=== PATIENT | male | born 1945 | race Caucasian/White ===

== ENCOUNTER 2020-10-02 09:18 | Inpatient (IN) | payer MEDICARE ==
[~2020-10-02] VITALS: Ht 180.3 cm; Wt 79.5 kg
--- NOTE | 2020-10-02 09:44 | NUR ---
PT WHEELED TO ROOM # 9 FOR BEDSIDE TRIAGE.
[2020-10-02 11:08] LABS: HEMATOCRIT 45.7 % (39.0-50.0); HEMOGLOBIN 14.9 g/dl (14.0-18.0); IMMATURE GRANULOCYTES 0.8 % (0.0-5.0); MEAN CELL VOLUME 92.3 fL CALC (80.0-100.0); MEAN CORPUSCULAR HGB 30.1 pG CALC (26.0-32.0); MEAN CORPUSCULAR HGB CONC 32.6 g/dL CAL (32.0-36.0); NEUT# 3.34 thou/uL (1.82-7.42); RED BLOOD COUNT 4.95 mill/uL (4.70-6.10); RED CELL DISTRI WIDTH 13.4 % (11.5-15.5)
[2020-10-02 11:20] LABS: ALBUMIN 3.7 g/dL (3.2-5.0); ALKALINE PHOSPHATASE 53 u/l (38-126); ANION GAP 12 (6-22 (CALC)); BUN 40 mg/dL (8-23); BUN/CREATININE RATIO 24 (12-20 (CALC)); CARBON DIOXIDE 29 mmol/l (22-30); CHLORIDE 94 mmol/l (95-108); CREATININE 1.7 mg/dL (0.7-1.3); GFR 39 ML/MIN (>=60 (CALC)); GFR FOR AFR.AMER. 48 ML/MIN (>=60 (CALC)); POTASSIUM 3.2 mmol/l (3.5-5.1); SGOT/AST 62 u/l (19-48); SODIUM 132 mmol/l (137-146); TOTAL PROTEIN 6.9 g/dL (6.3-8.2)
--- NOTE | 2020-10-02 11:23 | NUR ---
Reassessment of patient completed. No distress noted.
[2020-10-02 11:31] LABS: MYOGLOBIN 208 ng/mL (0 - 121)
--- NOTE | 2020-10-02 13:33 | NUR ---
Reassessment of patient completed. No distress noted.
--- NOTE | 2020-10-02 18:03 | NUR ---
Reassessment of patient completed. No distress noted.
[2020-10-02 20:01] VITALS: BP 132/68
--- NOTE | 2020-10-02 20:27 | NUR ---
PATIENT ARRIVED TO ICU AT 2000. ALERT AND ORIENTED. PATIENT STATES THAT HE LIVES AT HOME WITH . BOTH HAVE COVID. STATES IS VACCINATED W MODERNA. PATIENT STATED HE IS UNVACCINATED. 3L O2 NASAL CANULA RESP OF 22, O2 SAT OF 88,HR NSB TELE 58 HX OF HTN TEMPORAL FEVER 99.7 SOB WITH LOWER LOBES DIMINISHED AT BILATERAL BASES, PATIENT REPORTS UNPRODUCTIVE AND 'DEEP' COUGH, PATIENT REPORTS CHILLS AND ACHES. WILL CONTINUE TO MONITOR. VITALS REMAIN STABLE.
--- NOTE | 2020-10-02 20:59 | NUR ---
RN GIVE REPORT TO [place] [facility]
[2020-10-03] VITALS (13 sets, daily range): BP systolic 93–140; BP diastolic 53–81
--- NOTE | 2020-10-03 00:01 | NUR ---
PATIENT ASLEEP AND PULLED O2 OFF, PULSE OX IMMEDIATELY DROPPED TO 77%. MASK REPLACED AND REFITTED O2 SATS RETURN TO BASELINE OF 88%
--- NOTE | 2020-10-03 06:17 | NUR ---
PATIENT SLEPT THROUGH THE NIGHT, FACE MASK CAME OFF A FEW TIMES DURING THE NIGHT
--- NOTE | 2020-10-03 06:18 | NUR ---
PT ON 5LPM NC. JONO LLOYD AT THIS TIME. BOOK CUTTER TO MONITOR.
--- NOTE | 2020-10-03 06:45 | NUR ---
REPORT RECEINVED FROM BELKYS PEPE. CARE ASSUMED.
[2020-10-03 06:50] LABS: HEMATOCRIT 43.6 % (39.0-50.0); HEMOGLOBIN 14.1 g/dl (14.0-18.0); IMMATURE GRANULOCYTES 0.5 % (0.0-5.0); MEAN CELL VOLUME 92.8 fL CALC (80.0-100.0); MEAN CORPUSCULAR HGB CONC 32.3 g/dL CAL (32.0-36.0); NEUT# 2.83 thou/uL (1.82-7.42); RED BLOOD COUNT 4.7 mill/uL (4.70-6.10); RED CELL DISTRI WIDTH 13.2 % (11.5-15.5)
[2020-10-03 07:18] LABS: ALKALINE PHOSPHATASE 47 u/l (38-126); BUN 32 mg/dL (8-23); BUN/CREATININE RATIO 28 (12-20 (CALC)); CARBON DIOXIDE 26 mmol/l (22-30); CHLORIDE 103 mmol/l (95-108); CREATININE 1.2 mg/dL (0.7-1.3); GFR 59 ML/MIN (>=60 (CALC)); GFR FOR AFR.AMER. > 60 ML/MIN (>=60 (CALC)); SGOT/AST 51 u/l (19-48); SODIUM 136 mmol/l (137-146); TOTAL PROTEIN 5.6 g/dL (6.3-8.2)
--- NOTE | 2020-10-03 07:20 | NUR ---
PT RESTING IN BED AWAKE. PT IS ALERT AND ORINETED X3. PT ASSISTED UP TO RECLINER AT THIS TIME. PT ON MASK AT 6L. O2 INCREASED TO 10L AT THIS TIME FOR O2 SATS IN 80S. PT PROVIDED EDUCATION ON COVID AND PRONING AT NIGHT AND UP IN CHAIR DURING THE DAY. PT VERBALIZED UNDERSTANDING. SHIFT ASSESSMENT COMPLETED AT THIS TIME. IV PATENT X1. CALL LIGHT IN REACH. WILL CONTINUE TO MONITOR
[2020-10-03 07:32] LABS: ANION GAP 11 (6-22 (CALC)); BILIRUBIN, TOTAL 0.5 mg/dL (0.0-1.4); C-REACTIVE PROTEIN 14.2 mg/dL (0-0.9); POTASSIUM 3.9 mmol/l (3.5-5.1)
--- NOTE | 2020-10-03 08:00 | NUR ---
PT SET UP FOR AM MEAL. PT REMOVED O2 MASK. NURSE INTO ROOM TO PLACE PT ON HI FLOW NASAL CANNULA. PT PLACED ON 12L HI FELIX. O2 SATS 92%
--- NOTE | 2020-10-03 09:45 | NUR ---
DR COOLEY AT BEDSIDE AT THIS TIME.
[2020-10-03] MEDS ORDERED: SIMVASTATIN20 M1 PO (10:01)
[2020-10-03] MEDS ORDERED: HYZAAR1 TAB PO (10:02)
[2020-10-03] MEDS ORDERED: AMLODIPINE BESY10 MG PO (10:02)
[2020-10-03] MEDS ORDERED: HYDRALAZINE50 MG PO (10:02)
--- NOTE | 2020-10-03 10:12 | NUR ---
PT PLACED ON 12L HFNC. JONO WELL AT THIS TIME. BRAKE MACHINE OPERATOR TO MONITOR.
--- NOTE | 2020-10-03 10:28 | NUR ---
PT SITTING UP IN REACLINER AT BEDSIDE. VSS ON MONITOR. CALL LIGHT IN REACH. WILL CONTINUE TO MONITOR.
--- NOTE | 2020-10-03 12:00 | NUR ---
PT SET UP FOR NOON MEAL AT THIS TIME.
--- NOTE | 2020-10-03 12:30 | NUR ---
PT ASSISTED UP TO BSC COMMODE AT THIS TIME.
--- NOTE | 2020-10-03 13:00 | NUR ---
PT REMAINS ON BSC STATES THAT HE NEEDS SOME MORE TIME.
--- NOTE | 2020-10-03 13:30 | NUR ---
PT ASSISTED BACK TO RECLINER AT THIS TIME. LARGE DARK STOOL NOTED AT THIS TIME. SPECIMEN SENT TO LAB FOR REFERNECE. DR COOLEY NOTIFIED. ORDERS RECEIVED FOR H&H.
--- NOTE | 2020-10-03 14:05 | NUR ---
PT WEANED TO 8LPM HFNC. JONO WELL. NAD. RN AWARE. BINDER LOCKSTITCH TO MONITOR.
--- NOTE | 2020-10-03 14:15 | NUR ---
DR COOLEY NOTIFIED OF POSITIVE OCCULT BLOOD AND DROP IN HIGB TO 13 NEW ORDERS RECEIVED AT THIS TIME.
[2020-10-03 14:37] LABS: HEMATOCRIT 42.6 % (39.0-50.0); HEMOGLOBIN 13.4 g/dl (14.0-18.0)
--- NOTE | 2020-10-03 16:00 | NUR ---
PT SITTING UP IN RECLINER AT BEDSIDE. RESP ARE EVEN AND UNLABORED. VSS ON MONITOR. NO DISTRESS NOTED. CALL LIGHT IN REACH. [facility] TO [facility].
--- NOTE | 2020-10-03 18:00 | NUR ---
PT SITTING UP IN RECLINER AT BEDSIDE EATING DINNER. NO DISTRESS NOTED. CALL LIGHT IN REACH. WILL CONTINUE TO MONITOR.
--- NOTE | 2020-10-03 19:00 | NUR ---
REPORT RECEIVED FROM Mecca KEITH RN, CARE OF PT ASSUMED AT THIS TIME.
--- NOTE | 2020-10-03 20:30 | NUR ---
PT LAYING IN PRONE POSITION. RESPIRATIONS REGULAR AND UNLABORED. SP02 98% ON 02 @8L/MIN VIA HI-FLOW NC. DENIES SOB AT REST. REPORTS SOB W/ EXERTION. SR 70'S ON MONITOR. AFEBRILE W/ TEMPORAL TEMP OF 96.9. PT ASSISTED TO BSC FOR BM. APPROX 200ML DARK TARRY LIQUID STOOL EMPTIED FROM COMMODE. PT INCONTINENT OF SMALL AMOUNT OF STOOL. PARTIAL LINEN CHANGE COMPLETED. PT ASSISTED W/ YOGESH-CARE. BRIEF APPLIED PER PT'S REQUEST. FRESH WATER AND HS SNACK PROVIDED. PT SAT UP IN BED. EDUCATION PROVIDED ON MEDICATIONS. SCHEDULED MEDICATIONS ADMINISTERED, PRN APAP ADMINISTERED. SEE E-MAR. PT DENIES FURTHER NEEDS AT THIS TIME. ITEMS WITHIN REACH. CALL SANDRA WITHIN REACH, AGREES TO CALL PRN. CONTACT/AIRBORNE ISOLATION IN PLACE. BED IN LOW POSITION W/ BEDRAILS UP X2.
[2020-10-04] VITALS (13 sets, daily range): BP systolic 109–157; BP diastolic 59–84
--- NOTE | 2020-10-04 00:30 | NUR ---
PT APPEARS TO BE SLEEPING COMFORTABLY. RESPIRATIONS REGULAR AND UNLABORED. VSS. NO APPARENT DISTRESS. CALL SANDRA REMAINS WITHIN REACH.
--- NOTE | 2020-10-04 04:30 | NUR ---
PT APPEARS TO BE SLEEPING COMFORTABLY. RESPIRATIONS REGULAR AND UNLABORED. VSS. NO APPARENT DISTRESS. CALL SANDRA REMAINS WITHIN REACH.
[2020-10-04 05:57] LABS: HEMOGLOBIN 11.7 g/dl (14.0-18.0); MEAN CELL VOLUME 93.3 fL CALC (80.0-100.0); MEAN CORPUSCULAR HGB 30.1 pG CALC (26.0-32.0); MEAN CORPUSCULAR HGB CONC 32.2 g/dL CAL (32.0-36.0); RED BLOOD COUNT 3.89 mill/uL (4.70-6.10); RED CELL DISTRI WIDTH 13.3 % (11.5-15.5)
[2020-10-04 06:01] LABS: HEMATOCRIT 36.3 % (39.0-50.0)
[2020-10-04 06:13] LABS: ALBUMIN 2.5 g/dL (3.2-5.0); ALKALINE PHOSPHATASE 39 u/l (38-126); ANION GAP 7 (6-22 (CALC)); BILIRUBIN, TOTAL 0.3 mg/dL (0.0-1.4); BUN 34 mg/dL (8-23); BUN/CREATININE RATIO 35 (12-20 (CALC)); CARBON DIOXIDE 28 mmol/l (22-30); CHLORIDE 106 mmol/l (95-108); GFR > 60 ML/MIN (>=60 (CALC)); GFR FOR AFR.AMER. > 60 ML/MIN (>=60 (CALC)); POTASSIUM 3.8 mmol/l (3.5-5.1); SGOT/AST 45 u/l (19-48); SODIUM 138 mmol/l (137-146); TOTAL PROTEIN 4.8 g/dL (6.3-8.2)
--- NOTE | 2020-10-04 06:15 | NUR ---
400 ML CLEAR YELLOW URINE EMPTIED FROM URINAL AFTER URINE SAMPLE COLLECTED AND SENT TO LAB. NEW BAG IV NS INTIATED, SEE E-MAR. PT DENIES FURTHER NEEDS AT THIS TIME, CALL SANDRA REMAINS WITHIN REACH, AGREES TO CALL PRN.
[2020-10-04 06:20] LABS: URINE BILIRUBIN - DIPSTICK NEGATIVE (NEGATIVE); URINE BLOOD DIPSTICK NEGATIVE (NEGATIVE); URINE CLARITY CLEAR; URINE COLOR YELLOW; URINE GLUCOSE - DIPSTICK NEGATIVE (NEGATIVE); URINE KETONE NEGATIVE (NEGATIVE); URINE LEUK ESTERASE NEGATIVE (Negative); URINE NITRITE - DIPSTICK NEGATIVE (Negative); URINE PH 6.5 (4.5-8.0); URINE PROTEIN - DIPSTICK NEGATIVE (NEG-TRACE); URINE SPECIFIC GRAVITY 1.015; URINE UROBILINOGEN - DIPSTICK 0.2 E.U./dL (0.2)
--- NOTE | 2020-10-04 07:07 | NUR ---
NAD. VSS. PUNCHER TO MONITOR.
--- NOTE | 2020-10-04 07:20 | NUR ---
pt resting in bed with eyes closed; no apparent distress noted; easy to arouse; pt offers no complaints; assessment completed at this time; pt alert and oriented; denies pain; no n/v noted; resp even and unlabored; lungs clear/ rhonchi bases; skin color wnl; o2 per nc at 8L hi alondra; steel erecting pusher cough noted; hr reg; strong pulses; no edema noted; sr on the monitor; abd soft with bs present; no bm noted per resume writer; no urine to inspect at this time; urinal at bedside; #20 to lac patent with ivf infusing without complication; no redness or edema noted at site; plan of care/ am meds explained; call light within reach; will continue to monitor
--- NOTE | 2020-10-04 08:27 | NUR ---
call received from spouse Fransisca; update provided
--- NOTE | 2020-10-04 10:10 | NUR ---
resting in bed with eyes closed; no apparent distress noted; sr on monitor; call light within reach; will continue to monitor
--- NOTE | 2020-10-04 10:49 | NUR ---
NAD. VSS. DEPUTY COMMONWEALTH'S ATTORNEY TO MONITOR,
--- NOTE | 2020-10-04 12:00 | NUR ---
Dr Vargas present at bedside to assess pt and discuss plan of care
--- NOTE | 2020-10-04 14:02 | NUR ---
resting in bed with eyes closed; no apparent distress noted; pt offers no complaints; sr on monitor; o2 per nc; call light within reach; will continue to monitor
--- NOTE | 2020-10-04 16:15 | NUR ---
awake in bed; iv intact and patent; sr on monitor; o2 per nc; call light within reach; will continue to monitor
--- NOTE | 2020-10-04 18:18 | NUR ---
awake in bed; offers no complaints; iv intact and patent; sr on monitor; o2 per nc at 8L high flow; call light within reach
--- NOTE | 2020-10-04 19:30 | NUR ---
awake. lying on back. denies resp diff. instructed about prone position. o2 cont 8 l/m high flow. monitoring specialist shows sinus rhythm hr 70. #20 lac ns infusing @ 100cchr. po fluids taken fair. voids per urinal. fall & air/contact precautions cont.
--- NOTE | 2020-10-04 20:50 | NUR ---
assisted to prone position.
--- NOTE | 2020-10-04 22:00 | NUR ---
remains in prone position. no resp distress. o2 cont.
[2020-10-05] VITALS (13 sets, daily range): BP systolic 122–160; BP diastolic 65–82
--- NOTE | 2020-10-05 00:01 | NUR ---
remains in prone position. no resp diff. transmitter chief shows sinus rhythm hr 68.
--- NOTE | 2020-10-05 02:00 | NUR ---
resting quietly. remains in prone position. no apparent resp diff.
--- NOTE | 2020-10-05 04:30 | NUR ---
turned self to back.
--- NOTE | 2020-10-05 05:07 | NUR ---
lab here. blood drawn.
[2020-10-05 07:04] LABS: ALBUMIN 2.5 g/dL (3.2-5.0); ALKALINE PHOSPHATASE 40 u/l (38-126); ANION GAP 8 (6-22 (CALC)); BILIRUBIN, TOTAL 0.4 mg/dL (0.0-1.4); BUN 21 mg/dL (8-23); BUN/CREATININE RATIO 26 (12-20 (CALC)); C-REACTIVE PROTEIN 3.6 mg/dL (0-0.9); CARBON DIOXIDE 25 mmol/l (22-30); CHLORIDE 108 mmol/l (95-108); CREATININE 0.8 mg/dL (0.7-1.3); GFR > 60 ML/MIN (>=60 (CALC)); GFR FOR AFR.AMER. > 60 ML/MIN (>=60 (CALC)); POTASSIUM 3.6 mmol/l (3.5-5.1); SGOT/AST 73 u/l (19-48); SODIUM 137 mmol/l (137-146); TOTAL PROTEIN 4.8 g/dL (6.3-8.2)
--- NOTE | 2020-10-05 07:45 | NUR ---
pt awake in bed; no apparent distress noted; no offers no complaints; assessment completed at this time; pt alert and oriented; denies pain; no n/v noted; resp even and unlabored; lungs clear/ diminished bases; skin color wnl; o2 per nc at 8L high flow; o2 sat 90%; hr reg; strong pulses; no edema noted; sr on monitor; abd soft with bs present; no bm noted per commercial lines underwriter; pt voiding clear yellow urine; urinal at bedside; #20 lac patent with ivf infusing without complication; no redness or edema noted; proning explained; pt states "he wants to go home"; o2 requirements explained; plan of care/ meds explained; call light within reach; will continue to monitor
[2020-10-05 07:48] LABS: HEMATOCRIT 36.3 % (39.0-50.0); HEMOGLOBIN 11.6 g/dl (14.0-18.0); MEAN CELL VOLUME 93.8 fL CALC (80.0-100.0); NEUT# 6.71 thou/uL (1.82-7.42); RED BLOOD COUNT 3.87 mill/uL (4.70-6.10); RED CELL DISTRI WIDTH 13.3 % (11.5-15.5)
--- NOTE | 2020-10-05 08:10 | NUR ---
awake in bed; offers no complaints; iv intact and patent; sr on monitor; call light within reach; will continue to monitor
--- NOTE | 2020-10-05 10:10 | NUR ---
Dr Vargas present at bedside to assess pt and discuss plan of care
--- NOTE | 2020-10-05 11:05 | NUR ---
NAD. VSS. EMBRYOLOGY PROFESSOR TO MONITOR.
--- NOTE | 2020-10-05 12:10 | NUR ---
pt awake in bed; offers no complaints; iv intact and patent; fluids cut to 50cc/hr per Dr Ramirez verbal order; sr on monitor; o2 per nc; call light within reach; will continue to monitor
--- NOTE | 2020-10-05 14:15 | NUR ---
awake in bed; offers no complaints; no apparent distress noted; o2 per nc at 8L; iv intact and patent; sr on monitor; call light within reach
--- NOTE | 2020-10-05 16:05 | NUR ---
pt resting in bed on left side with eyes closed; no apparent distress noted; o2 per nc; iv intact and patent; sr on monitor; call light within reach; will continue to monitor
--- NOTE | 2020-10-05 18:07 | NUR ---
awake in bed; offers no complaints; iv intact and patent; no redness or edema noted at site; sr on monitor; o2 per nc high flow; deny needs; call light within reach; will continue to monitor
--- NOTE | 2020-10-05 19:30 | NUR ---
awake. lying on back. denies resp diff. o2 cont per 8 l/m high flow nc. monitor worker shows sinus rhythm hr 70. #20 lac ns infusing @ 50cchr. po fluids taken fair. voids per urinal. fall & air/contact precautions cont. instructed about prone position. pt verbalizes understanding.
--- NOTE | 2020-10-05 22:00 | NUR ---
eyes closed. no resp distress. engine monitor shows sinus rhythm hr 64.
[2020-10-06] VITALS (9 sets, daily range): BP systolic 106–157; BP diastolic 56–85
--- NOTE | 2020-10-06 00:01 | NUR ---
eyes closed. no distress. remains on back. no distress.
--- NOTE | 2020-10-06 02:00 | NUR ---
resting quietly. resps even & unlabored. no apparent distress.
--- NOTE | 2020-10-06 04:00 | NUR ---
eyes closed. no distress. potline monitor shows sinus rhythm hr 62.
--- NOTE | 2020-10-06 05:31 | NUR ---
lab here. blood drawn.
--- NOTE | 2020-10-06 06:17 | NUR ---
eyes closed. no distress. has not proned this shift.
[2020-10-06 06:33] LABS: HEMATOCRIT 36.1 % (39.0-50.0); HEMOGLOBIN 11.8 g/dl (14.0-18.0); MEAN CELL VOLUME 92.3 fL CALC (80.0-100.0); MEAN CORPUSCULAR HGB 30.2 pG CALC (26.0-32.0); MEAN CORPUSCULAR HGB CONC 32.7 g/dL CAL (32.0-36.0); RED BLOOD COUNT 3.91 mill/uL (4.70-6.10)
[2020-10-06 06:37] LABS: ALBUMIN 2.7 g/dL (3.2-5.0); ALKALINE PHOSPHATASE 45 u/l (38-126); ANION GAP 10 (6-22 (CALC)); BILIRUBIN, TOTAL 0.5 mg/dL (0.0-1.4); BUN 17 mg/dL (8-23); BUN/CREATININE RATIO 21 (12-20 (CALC)); CARBON DIOXIDE 26 mmol/l (22-30); CHLORIDE 104 mmol/l (95-108); CREATININE 0.8 mg/dL (0.7-1.3); GFR > 60 ML/MIN (>=60 (CALC)); GFR FOR AFR.AMER. > 60 ML/MIN (>=60 (CALC)); POTASSIUM 3.4 mmol/l (3.5-5.1); SGOT/AST 125 u/l (19-48); SODIUM 137 mmol/l (137-146); TOTAL PROTEIN 4.9 g/dL (6.3-8.2)
--- NOTE | 2020-10-06 07:00 | NUR ---
pt resting in bed with eyes closed; no apparent distress noted; easily aroused; pt offers no complaints; assessment completed at this time; pt alert and oriented; denies pain; no n/v noted; resp even and unlabored; lungs clear/ diminished bases; skin color wnl; o2 per nc at 8L high flow; o2 titrated to 6L at this time; relocation counselor dry cough; hr reg; strong pulses; no edema noted; sr on monitor; abd soft with bs present; no bm noted per contract technical writer; pt voiding clear yellow urine without complication; urinal at bedside; #20 to lac patent with ivf infusing without complication; no redness or edema noted at site; plan of care/ am meds explained; call light within reach; will continue to monitor
--- NOTE | 2020-10-06 08:10 | NUR ---
awake in bed eating breakfast; o2 per nc; sr on monitor; call light within reach; will continue to monitor
--- NOTE | 2020-10-06 09:10 | NUR ---
am meds explained and administered; pt assisted to recliner at this time; tolerated activity well; call light within reach
--- NOTE | 2020-10-06 09:30 | NUR ---
Dr Vargas present at bedside to assess pt and discuss plan of care
--- NOTE | 2020-10-06 10:10 | NUR ---
pt resting with eyes closed; no apparent distress noted; o2 per nc; sr on monitor; remains in recliner; will continue to monitor
--- NOTE | 2020-10-06 11:09 | NUR ---
O2 SATURATION 94% ON 5L
--- NOTE | 2020-10-06 11:14 | NUR ---
pt transferred to CT scan via wc with portable o2 in stable condition
--- NOTE | 2020-10-06 11:30 | NUR ---
pt returned from CT scan with portable o2 in stable condition; back to recliner as per request; monitoring attachments reapplied
--- NOTE | 2020-10-06 12:00 | NUR ---
awake in recliner eating lunch; offers no complaints; no apparent distress noted; iv intact; sr on monitor; call light within reach; will continue to monitor
--- NOTE | 2020-10-06 12:09 | NUR ---
report called to Nikos Calvert LPN
--- NOTE | 2020-10-06 12:10 | NUR ---
PT REPORT RECIEVED FROM MY LARA
--- NOTE | 2020-10-06 12:22 | NUR ---
PT TRANSPORTED FROM ICU TO [facility] IN STABLE CONDITION
--- NOTE | 2020-10-06 12:30 | NUR ---
pt transferred to med surg tele room [id number] via wc accompanied by this real estate underwriter and GAVIN Karimi; transferred with portable o2 in stable condition; update provided to Nikos Calvert; iv flushed and patent with ivf infusing without complication; tele to be applied
--- NOTE | 2020-10-06 12:35 | NUR ---
PT RESTING IN BED. O2 @ 5L ON PT; STATING 93%. NO C/O PAIN OR SOB. TELE IN PLACE. URINAL AT BEDSIDE. CALL LIGHT IN REACH. WILL CONTINUE TO MONITOR.
--- NOTE | 2020-10-06 12:39 | NUR ---
call placed to spouse Fransisca Anaya; updated on comdition and transfer to medical floor
--- NOTE | 2020-10-06 16:30 | NUR ---
PT RESTING. NO C/O PAIN. O2 @5L ON PT. SAFETY PRECAUTIONS IN PLACE. URINAL AT BEDSIDE. CALL LIGHT IN REACH. WILL CONTINUE TO MONITOR.
--- NOTE | 2020-10-06 19:00 | NUR ---
RECEIVED REPORT FOM NURSE DELL, PATIENT RESTING IN BED, ON AIR/CONTACT PRECAUTION CALL LIGHT AT REACH.
--- NOTE | 2020-10-06 20:00 | NUR ---
PATIENT ALERT ORINTED ABLE TO MAKE NEEDS KNOWN, WITH ONGOING IV NS @ 50CC/HR INFUSING WELL ON LAC, HOOKED ON O2 @ 5LPM VIA HIGH FLOW NC, BREATHING SHALLOW, UNLABORED, REMAINS ON TELEMETRY SR 70, PATIENT RESTING IN BED, EYS CLOSED, CALL LIGHT AT REACH.
--- NOTE | 2020-10-07 | NUR ---
PATIENT RESTING IN BED, EYES CLOSED, BREATHING UNLABORED, REMAINS ON O2 @ 5LPM VIA NC, CALL LIGHT AT REACH.
[2020-10-07 04:00] VITALS: BP 142/83
--- NOTE | 2020-10-07 04:33 | NUR ---
PATIENT RESTING IN BED WITH EYES CLOSED, BREATHING EVEN UNLABORED, REMAINS ON O2 @ 5LPM VIA NC CALL LIGHT AT REACH.
--- NOTE | 2020-10-07 06:45 | NUR ---
REPORT RECIVED FROM [facility]. CARE ASSUMED.
[2020-10-07 07:11] LABS: HEMATOCRIT 38.6 % (39.0-50.0); HEMOGLOBIN 12.7 g/dl (14.0-18.0); IMMATURE GRANULOCYTES 2.6 % (0.0-5.0); MEAN CELL VOLUME 91.3 fL CALC (80.0-100.0); MEAN CORPUSCULAR HGB CONC 32.9 g/dL CAL (32.0-36.0); NEUT# 7.3 thou/uL (1.82-7.42); RED BLOOD COUNT 4.23 mill/uL (4.70-6.10); RED CELL DISTRI WIDTH 12.9 % (11.5-15.5)
[2020-10-07 07:34] LABS: ALBUMIN 2.8 g/dL (3.2-5.0); ALKALINE PHOSPHATASE 41 u/l (38-126); ANION GAP 9 (6-22 (CALC)); BILIRUBIN, TOTAL 0.6 mg/dL (0.0-1.4); BUN 19 mg/dL (8-23); BUN/CREATININE RATIO 24 (12-20 (CALC)); C-REACTIVE PROTEIN 2.1 mg/dL (0-0.9); CARBON DIOXIDE 26 mmol/l (22-30); CHLORIDE 106 mmol/l (95-108); CREATININE 0.8 mg/dL (0.7-1.3); GFR > 60 ML/MIN (>=60 (CALC)); GFR FOR AFR.AMER. > 60 ML/MIN (>=60 (CALC)); SGOT/AST 67 u/l (19-48); SODIUM 137 mmol/l (137-146); TOTAL PROTEIN 5.2 g/dL (6.3-8.2)
--- NOTE | 2020-10-07 08:00 | NUR ---
FIELD RECRUITER SET PT UP FOR AM MEAL
--- NOTE | 2020-10-07 09:00 | NUR ---
AM ASSESSMENT COMPLETED AT THIS TIME. IV PATENT X1. PT IS ALERT AND ORIENTED X3. CALL LIGHT IN REACH. WILL CONTINUE TO MONITOR.
[2020-10-07 09:14] VITALS: BP 140/72
[2020-10-07 11:09] VITALS: BP 125/70
--- NOTE | 2020-10-07 12:00 | NUR ---
PT SET UP FOR NOON MEAL AT THIS TIME. CALL LIGHT IN REACH. WILL CONTINUE TO MONITOR.
[2020-10-07 15:00] VITALS: BP 138/72; BP 148/83
[2020-10-07] MEDS ORDERED: DEXAMETHASON6 MG PO ×2 (15:42→15:45)
[2020-10-07] MEDS ORDERED: VENTOLIN HFA108 MCG IN (15:43)
[2020-10-07] MEDS ORDERED: ASPIRIN REGULA325 M1 PO (15:43)
[2020-10-07] MEDS ORDERED: ZITHROMAX250 MG PO (15:45)
[2020-10-07] MEDS ORDERED: OXY1 (15:46)
--- NOTE | 2020-10-07 16:18 | NUR ---
RT COMPLETING EKG AT THIS TIME.
--- NOTE | 2020-10-07 18:20 | NUR ---
DISCHARGE INSTRUCTIONS REVIEWED WITH PATIENT. PATIENT VERBALIZED UNDERSTANDING.
--- NOTE | 2020-10-07 18:23 | NUR ---
Discharge instructions given. Patient verbalizes understanding of same. Discharged in stable condition via Wheelchair to Home with staff. All belongings sent with pt.
--- NOTE | 2020-10-14 11:55 | NUR ---
Pneumonia post discharge follow up call completed today, 10/14/20. Pt. states he is doing well. No fever, chills, or excessive SOB since discharge. Pt. is still using O2 at home. Pt. has taken medication prescribed at discharge without issue. No follow up appt. has been made yet, but patient states he will call today. No questions or concerns voiced at this time.
== END 2020-10-07 18:23 | disposition home health service (06) | DRG 177 ==
LOC: ED 09:18 → ED-I 11:35 → ED 11:39 → ICU 17:09 → MS2 10-06 13:10
PROVIDERS: Family Medicine; ADMIT Internal Medicine; ATTEND Internal Medicine
PROC: XW033E5 Introduction of Remdesivir Anti-infective into Peripheral Vein, Percutaneous Approach, New Technology Group 5 (ICD-10-PCS; principal; 2020-10-02)
DX: U07.1 COVID-19 (principal); J12.82 Pneumonia due to coronavirus disease 2019; J96.01 Acute respiratory failure with hypoxia; N17.9 Acute kidney failure, unspecified; K92.2 Gastrointestinal hemorrhage, unspecified; I12.9 Hypertensive chronic kidney disease with stage 1 through stage 4 chronic kidney disease, or unspecified chronic kidney disease; N18.9 Chronic kidney disease, unspecified; E86.0 Dehydration; E78.5 Hyperlipidemia, unspecified; I73.9 Peripheral vascular disease, unspecified; R91.1 Solitary pulmonary nodule; Z95.820 Peripheral vascular angioplasty status with implants and grafts; Z87.891 Personal history of nicotine dependence
CPT/HCPCS: J1650; Q9967; S0164